=== PATIENT | male | born 1950 | race African-American/Black ===

== ENCOUNTER 2020-05-17 08:54 | Inpatient (IN) | payer MEDICARE, MEDICAID ==
[~2020-05-17] VITALS: Ht 170.2 cm; Wt 82.6 kg
[2020-05-17] MEDS ORDERED: SODIUM CHLORIDE 0.9% 1000ML BAG (SEPSIS BOLUS) IV ONE (09:15)
[2020-05-17 10:14] LABS: HEMATOCRIT. 49.9 % (42.0-52.0); HEMOGLOBIN. 16.2 g/dL (14.0-18.0); MEAN CORPUSCULAR HEMOGLOBIN 26.4 pg (28.0-32.0); MEAN CORPUSCULAR VOLUME 81.2 fL (80.0-94.0); PLATELET 219 x1000/uL (130-400); RED BLOOD CELL COUNT 6.14 mill/uL (4.7-6.1); RED CELL DISTRIBUTION WIDTH 13.1 % (11.6-14.6)
[2020-05-17 10:24] LABS: CHLORIDE 99 mEq/L (98-107); D-DIMER 1.58 mg/L FEU (<0.50); INR 1.1; PROTHROMBIN TIME 11.4 sec (9.6-11.0)
[2020-05-17 10:32] LABS: CREATINE KINASE 309 IU/L (39-308)
[2020-05-17 10:42] LABS: ATYPICAL LYMPHOCYTES 1
[2020-05-17 10:43] LABS: PLATELET ESTIMATE NORMAL
[2020-05-17] MEDS ORDERED: VANCOMYCIN 1 G PREMIX 200 ML IV ONE (11:15)
[2020-05-17] MEDS ORDERED: PIPERACILLIN/TAZ 3.375G PREMIX 50 ML IV ONE (11:15)
[2020-05-17] MEDS ORDERED: ONDANSETRON HCL 4MG/2ML INJ IV PRN (12:30)
[2020-05-17] MEDS ORDERED: ALBUTEROL 6.7GM HFA INHALER ORI PRN (12:30)
[2020-05-17] MEDS ORDERED: CLONIDINE 0.1MG TABLET PO PRN (12:30)
[2020-05-17] MEDS ORDERED: NITROGLYCERIN 0.4MG TABLET SL SL PRN (12:30)
[2020-05-17] MEDS ORDERED: KETOROLAC 15MG/ML VIAL IV PRN (12:30)
[2020-05-17] MEDS ORDERED: ACETAMINOPHEN 325MG TABLET PO PRN ×2 (12:30)
[2020-05-17] MEDS ORDERED: MAGNESIUM/ALUMINUM HYDROXIDE/SIMETHICONE 30ML UDC PO PRN (12:30)
[2020-05-17] MEDS ORDERED: GUAIFENESIN 200MG/10ML SUGAR FREE UDC PO PRN (12:30)
[2020-05-17] MEDS ORDERED: NA PHOS,M-B/NA PHOS,DI-BA ENEMA 118ML PR PRN (12:30)
[2020-05-17] MEDS ORDERED: DOCUSATE SODIUM 100MG CAPSULE PO PRN (12:30)
[2020-05-17] MEDS ORDERED: TRAMADOL 50MG TABLET PO PRN (12:30)
[2020-05-17] MEDS ORDERED: CEFTRIAXONE 1 G PREMIX 50 ML IV SCH (13:00)
[2020-05-17] MEDS ORDERED: AZITHROMYCIN 500 MG in DEXT 5% WATER 250 ML IV SCH (13:00)
[2020-05-17 13:32] LABS: FERRITIN 1285 ng/mL (22-322)
[2020-05-17 14:02] LABS: BG BASE EXCESS 1.4 mmol/L (-2.0-2.0); BG CARBOXYHEMOGLOBIN 0.3 % (0.5-1.5); BG DEOXYHEMOGLOBIN 12.6 % (0.0-5.0); BG FRACTION INSPIRED OXYGEN 32; BG HCO3 ACT 23.5 mmol/L (22.0-26.0); BG METHEMOGLOBIN 0.7 % (0.0-1.5); BG OXYGEN SATURATION 87.3 % (92.0-98.5); BG OXYHEMOGLOBIN 86.4 % (94.0-97.0); BG PCO2 31.1 mmHg (35.0-45.0); BG PH 7.497 (7.350-7.450); BG PO2 51.9 mmHg (75.0-100.0); BG SAMPLE SITE RIGHT RADIAL; BG TOTAL HEMOGLOBIN 16.3 g/dL (12.0-18.0); BG VENT MODE NASAL CANNULA
[2020-05-17 15:30] LABS: FOLIC ACID (FOLATE) SERUM >20 ng/mL ng/mL (>5.38)
[2020-05-17 15:41] LABS: VITAMIN B12 SERUM 1631 pg/mL (211-911)
[2020-05-17 15:52] LABS: CREATINE KINASE 248 IU/L (39-308); CREATINE KINASE MB FRACTION < 1.0 ng/mL (0.5-3.6)
[2020-05-17] MEDS: ENOXAPARIN 40MG/0.4ML SYR SUBCUT SCH (18:13)
[2020-05-17] MEDS: DEXAMETHASONE 10 MG/ML VIAL IV SCH (18:13)
[2020-05-17 19:47] LABS: CLARITY URINE CLOUDY (CLEAR); COLOR URINE DARK YELLOW (YELLOW); KETONES URINE TRACE (NEGATIVE); LEUKOCYTE ESTERASE URINE TRACE (NEGATIVE); NITRITE URINE POSITIVE (NEGATIVE); OCCULT BLOOD URINE NEGATIVE (NEGATIVE); PROTEIN URINE 2+ (NEGATIVE); SPECIFIC GRAVITY URINE 1.028 (1.005-1.030)
[2020-05-17 20:00] VITALS: BP 152/84
[2020-05-17 20:01] LABS: *AMPHETAMINES SCREEN URINE NEGATIVE (NEGATIVE); *BARBITURATES SCREEN URINE NEGATIVE (NEGATIVE); *BENZODIAZEPINES SCREEN URINE NEGATIVE (NEGATIVE); *COCAINE SCREEN URINE NEGATIVE (NEGATIVE)
[2020-05-17 20:02] LABS: CANNABINOID URINE SCREEN PRESUMTIVE POSITIVE (NEGATIVE); METHADONE URINE SCREEN NEGATIVE (NEGATIVE); OPIATES URINE SCREEN NEGATIVE (NEGATIVE); PHENCYCLIDINE URINE SCREEN NEGATIVE (NEGATIVE)
[2020-05-17] MEDS: FAMOTIDINE 20MG TABLET PO SCH (20:27)
[2020-05-17] MEDS: ASCORBIC ACID 500 MG TABLET PO SCH (20:27)
[2020-05-17] MEDS: GUAIFENESIN/DM 600MG/30MG ER TAB 12HR PO SCH (20:27)
[2020-05-17] MEDS: DILTIAZEM HCL 60MG TABLET PO SCH (20:27)
[2020-05-17] MEDS: ALBUTEROL 6.7GM HFA INHALER ORI SCH (20:29)
[2020-05-17] MEDS ORDERED: ZOLPIDEM TARTRATE 5MG TABLET PO PRN (21:00)
[2020-05-17 23:45] LABS: CREATINE KINASE 199 IU/L (39-308)
[2020-05-17 23:46] LABS: CREATINE KINASE MB FRACTION < 1.0 ng/mL (0.5-3.6)
[2020-05-18 00:05] VITALS: BP 117/79
[2020-05-18 04:00] VITALS: BP 133/70
[2020-05-18] MEDS: DILTIAZEM HCL 60MG TABLET PO SCH ×4 (05:56→18:16)
[2020-05-18] MEDS: ALBUTEROL 6.7GM HFA INHALER ORI SCH ×4 (05:56→21:25)
[2020-05-18 07:48] LABS: BASOPHILS % 0.3 % (0.0-2.0); HEMATOCRIT. 44.5 % (42.0-52.0); HEMOGLOBIN. 14.5 g/dL (14.0-18.0); LYMPHOCYTES % 8.3 % (20.0-50.0); MEAN CORPUSCULAR HEMOGLOBIN 26.5 pg (28.0-32.0); MEAN CORPUSCULAR VOLUME 81.2 fL (80.0-94.0); MEAN PLATELET VOLUME 8.9 fl (7.4-10.4); MONOCYTES % 4.5 % (2.0-8.0); NEUTROPHILS % 86.9 % (40.0-76.0); PLATELET 184 x1000/uL (130-400); RED BLOOD CELL COUNT 5.48 mill/uL (4.7-6.1); RED CELL DISTRIBUTION WIDTH 13.6 % (11.6-14.6)
[2020-05-18 08:00] VITALS: BP 126/77
[2020-05-18 08:04] LABS: CHLORIDE 107 mEq/L (98-107)
[2020-05-18 08:15] LABS: PHOSPHORUS 2.6 mg/dL (2.5-4.9)
[2020-05-18 08:16] LABS: HDL CHOLESTEROL 19 mg/dL (40-59); LDL CHOLESTEROL 69 mg/dL (5-100)
[2020-05-18] MEDS: ZINC SULFATE 220 MG ( 50 ) CAPSULE PO SCH (08:28)
[2020-05-18] MEDS: ASPIRIN 81MG EC TABLET PO SCH (08:28)
[2020-05-18] MEDS: ASCORBIC ACID 500 MG TABLET PO SCH ×2 (08:28→21:25)
[2020-05-18] MEDS: FAMOTIDINE 20MG TABLET PO SCH ×2 (08:29→21:25)
[2020-05-18] MEDS: GUAIFENESIN/DM 600MG/30MG ER TAB 12HR PO SCH ×2 (08:29→21:25)
[2020-05-18] MEDS: DEXAMETHASONE 10 MG/ML VIAL IV SCH (08:29)
[2020-05-18] MEDS ORDERED: DEXTROSE 50% WATER 50ML SYRINGE IV PRN (11:15)
[2020-05-18] MEDS: BLOOD SUGAR DIAGNOSTIC STRIP TEST SCH ×3 (11:40→21:00)
[2020-05-18 12:00] VITALS: BP 136/77
[2020-05-18] MEDS: CEFTRIAXONE 1,000 MG in DEXTROSE 5% WATER 50 ML IV SCH (13:51)
[2020-05-18] MEDS: ENOXAPARIN 40MG/0.4ML SYR SUBCUT SCH (13:53)
[2020-05-18] MEDS: INSULIN LISPRO 100 UNITS/ML SUBCUT SCH ×3 (13:53→21:00)
[2020-05-18 16:00] VITALS: BP 138/82
[2020-05-18] MEDS: AZITHROMYCIN 500MG in DEXTROSE 5% WATER 250ML IV SCH (18:15)
[2020-05-18 20:00] VITALS: BP 131/77
[2020-05-19 00:07] VITALS: BP 121/76
[2020-05-19] MEDS: DILTIAZEM HCL 60MG TABLET PO SCH ×4 (00:31→17:31)
[2020-05-19 04:00] VITALS: BP 126/74
[2020-05-19] MEDS: ALBUTEROL 6.7GM HFA INHALER ORI SCH ×4 (04:00→21:18)
[2020-05-19] MEDS: INSULIN LISPRO 100 UNITS/ML SUBCUT SCH ×4 (05:54→21:23)
[2020-05-19] MEDS: BLOOD SUGAR DIAGNOSTIC STRIP TEST SCH ×4 (05:54→21:12)
[2020-05-19 08:00] VITALS: BP 127/72
[2020-05-19] MEDS: GUAIFENESIN/DM 600MG/30MG ER TAB 12HR PO SCH ×2 (09:27→21:12)
[2020-05-19] MEDS: ZINC SULFATE 220 MG ( 50 ) CAPSULE PO SCH (09:27)
[2020-05-19] MEDS: FAMOTIDINE 20MG TABLET PO SCH ×2 (09:27→21:12)
[2020-05-19] MEDS: ASPIRIN 81MG EC TABLET PO SCH (09:27)
[2020-05-19] MEDS: ASCORBIC ACID 500 MG TABLET PO SCH ×2 (09:27→21:12)
[2020-05-19 12:00] VITALS: BP 125/60
[2020-05-19] MEDS: DEXAMETHASONE 10 MG/ML VIAL IV SCH (12:18)
[2020-05-19] MEDS: CEFTRIAXONE 1,000 MG in DEXTROSE 5% WATER 50 ML IV SCH (12:56)
[2020-05-19] MEDS: ENOXAPARIN 40MG/0.4ML SYR SUBCUT SCH (12:57)
[2020-05-19] MEDS: AZITHROMYCIN 500MG in DEXTROSE 5% WATER 250ML IV SCH (17:30)
[2020-05-19 20:00] VITALS: BP 111/78
[2020-05-20] VITALS: BP 138/84
[2020-05-20] MEDS: DILTIAZEM HCL 60MG TABLET PO SCH ×5 (00:42→23:44)
[2020-05-20] MEDS: ALBUTEROL 6.7GM HFA INHALER ORI SCH ×4 (03:36→21:17)
[2020-05-20 04:00] VITALS: BP 137/84
[2020-05-20] MEDS: BLOOD SUGAR DIAGNOSTIC STRIP TEST SCH ×4 (06:38→21:04)
[2020-05-20 08:00] VITALS: BP 123/77
[2020-05-20] MEDS: DEXAMETHASONE 10 MG/ML VIAL IV SCH (08:59)
[2020-05-20] MEDS: ASPIRIN 81MG EC TABLET PO SCH (08:59)
[2020-05-20] MEDS: ASCORBIC ACID 500 MG TABLET PO SCH ×2 (08:59→21:13)
[2020-05-20] MEDS: FAMOTIDINE 20MG TABLET PO SCH ×2 (09:00→21:13)
[2020-05-20] MEDS: ZINC SULFATE 220 MG ( 50 ) CAPSULE PO SCH (09:00)
[2020-05-20] MEDS: GUAIFENESIN/DM 600MG/30MG ER TAB 12HR PO SCH ×2 (09:00→21:13)
[2020-05-20] MEDS: INSULIN LISPRO 100 UNITS/ML SUBCUT SCH ×4 (09:02→21:13)
[2020-05-20 12:00] VITALS: BP 152/72
[2020-05-20] MEDS: ENOXAPARIN 40MG/0.4ML SYR SUBCUT SCH (13:44)
[2020-05-20] MEDS: CEFTRIAXONE 1,000 MG in DEXTROSE 5% WATER 50 ML IV SCH (13:44)
[2020-05-20] MEDS: AZITHROMYCIN 500MG in DEXTROSE 5% WATER 250ML IV SCH (18:41)
[2020-05-20 20:00] VITALS: BP 127/83
[2020-05-21] VITALS: BP 123/74
[2020-05-21] MEDS: ALBUTEROL 6.7GM HFA INHALER ORI SCH ×4 (03:53→21:41)
[2020-05-21 04:00] VITALS: BP 142/82
[2020-05-21] MEDS: DILTIAZEM HCL 60MG TABLET PO SCH ×4 (05:39→23:54)
[2020-05-21] MEDS: BLOOD SUGAR DIAGNOSTIC STRIP TEST SCH ×4 (06:20→21:40)
[2020-05-21 08:00] VITALS: BP 143/85
[2020-05-21] MEDS: FAMOTIDINE 20MG TABLET PO SCH ×2 (08:55→21:40)
[2020-05-21] MEDS: GUAIFENESIN/DM 600MG/30MG ER TAB 12HR PO SCH ×2 (08:55→21:40)
[2020-05-21] MEDS: ASCORBIC ACID 500 MG TABLET PO SCH ×2 (08:55→21:40)
[2020-05-21] MEDS: ZINC SULFATE 220 MG ( 50 ) CAPSULE PO SCH (08:55)
[2020-05-21] MEDS: DEXAMETHASONE 10 MG/ML VIAL IV SCH (08:55)
[2020-05-21] MEDS: ASPIRIN 81MG EC TABLET PO SCH (08:55)
[2020-05-21] MEDS: INSULIN LISPRO 100 UNITS/ML SUBCUT SCH ×4 (08:59→21:00)
[2020-05-21 12:00] VITALS: BP 132/85
[2020-05-21] MEDS: CEFTRIAXONE 1,000 MG in DEXTROSE 5% WATER 50 ML IV SCH (13:14)
[2020-05-21] MEDS: ENOXAPARIN 40MG/0.4ML SYR SUBCUT SCH (13:15)
[2020-05-21 15:54] VITALS: BP 138/84
[2020-05-21] MEDS: AZITHROMYCIN 500MG in DEXTROSE 5% WATER 250ML IV SCH (16:30)
[2020-05-21 20:00] VITALS: BP 146/85
[2020-05-22] VITALS: BP 145/90
[2020-05-22] MEDS: DILTIAZEM HCL 60MG TABLET PO SCH ×4 (05:31→23:45)
[2020-05-22] MEDS: ALBUTEROL 6.7GM HFA INHALER ORI SCH ×4 (05:33→21:15)
[2020-05-22] MEDS: BLOOD SUGAR DIAGNOSTIC STRIP TEST SCH ×4 (06:21→21:12)
[2020-05-22 08:00] VITALS: BP 141/84
[2020-05-22] MEDS: INSULIN LISPRO 100 UNITS/ML SUBCUT SCH ×4 (08:38→21:13)
[2020-05-22] MEDS: ZINC SULFATE 220 MG ( 50 ) CAPSULE PO SCH (08:39)
[2020-05-22] MEDS: ASCORBIC ACID 500 MG TABLET PO SCH ×2 (08:39→21:12)
[2020-05-22] MEDS: FAMOTIDINE 20MG TABLET PO SCH ×2 (08:39→21:12)
[2020-05-22] MEDS: GUAIFENESIN/DM 600MG/30MG ER TAB 12HR PO SCH ×2 (08:39→21:12)
[2020-05-22] MEDS: ASPIRIN 81MG EC TABLET PO SCH (08:39)
[2020-05-22] MEDS: DEXAMETHASONE 10 MG/ML VIAL IV SCH (08:39)
[2020-05-22] MEDS: ENOXAPARIN 40MG/0.4ML SYR SUBCUT SCH (11:43)
[2020-05-22 12:00] VITALS: BP 143/85
[2020-05-22 16:00] VITALS: BP 149/88
[2020-05-22 20:00] VITALS: BP 144/90
[2020-05-23] VITALS: BP 149/76
[2020-05-23] MEDS: ALBUTEROL 6.7GM HFA INHALER ORI SCH ×4 (03:07→22:33)
[2020-05-23 04:00] VITALS: BP 147/72
[2020-05-23] MEDS: DILTIAZEM HCL 60MG TABLET PO SCH ×3 (05:56→18:03)
[2020-05-23] MEDS: BLOOD SUGAR DIAGNOSTIC STRIP TEST SCH ×4 (06:40→21:00)
[2020-05-23] MEDS: INSULIN LISPRO 100 UNITS/ML SUBCUT SCH ×4 (07:10→21:00)
[2020-05-23 08:00] VITALS: BP 126/80
[2020-05-23] MEDS: GUAIFENESIN/DM 600MG/30MG ER TAB 12HR PO SCH ×2 (08:27→22:31)
[2020-05-23] MEDS: FAMOTIDINE 20MG TABLET PO SCH ×2 (08:27→22:31)
[2020-05-23] MEDS: ASCORBIC ACID 500 MG TABLET PO SCH ×2 (08:27→22:31)
[2020-05-23] MEDS: ZINC SULFATE 220 MG ( 50 ) CAPSULE PO SCH (08:27)
[2020-05-23] MEDS: ASPIRIN 81MG EC TABLET PO SCH (08:27)
[2020-05-23] MEDS: DEXAMETHASONE 10 MG/ML VIAL IV SCH (08:28)
[2020-05-23 12:00] VITALS: BP 152/76
[2020-05-23] MEDS: ENOXAPARIN 40MG/0.4ML SYR SUBCUT SCH (13:18)
[2020-05-23 16:00] VITALS: BP 153/96
[2020-05-23 20:00] VITALS: BP 145/89
[2020-05-24] VITALS: BP 156/98
[2020-05-24] MEDS: ALBUTEROL 6.7GM HFA INHALER ORI SCH ×4 (03:34→21:00)
[2020-05-24 04:00] VITALS: BP 149/96
[2020-05-24] MEDS: DILTIAZEM HCL 60MG TABLET PO SCH ×5 (06:09→23:00)
[2020-05-24] MEDS: INSULIN LISPRO 100 UNITS/ML SUBCUT SCH ×4 (07:10→23:26)
[2020-05-24] MEDS: BLOOD SUGAR DIAGNOSTIC STRIP TEST SCH ×4 (07:30→21:34)
[2020-05-24 08:00] VITALS: BP 158/101
[2020-05-24] MEDS: FAMOTIDINE 20MG TABLET PO SCH ×2 (08:05→21:34)
[2020-05-24] MEDS: ASCORBIC ACID 500 MG TABLET PO SCH ×2 (08:05→21:34)
[2020-05-24] MEDS: ZINC SULFATE 220 MG ( 50 ) CAPSULE PO SCH (08:05)
[2020-05-24] MEDS: GUAIFENESIN/DM 600MG/30MG ER TAB 12HR PO SCH ×2 (08:05→21:34)
[2020-05-24] MEDS: ASPIRIN 81MG EC TABLET PO SCH (08:05)
[2020-05-24] MEDS: DEXAMETHASONE 10 MG/ML VIAL IV SCH (08:05)
[2020-05-24 10:09] LABS: HEMOGLOBIN 14.1 g/dL (14.0-18.0); PLATELET 310 x1000/uL (130-400); RED BLOOD CELL COUNT 5.43 mill/uL (4.7-6.1); RED CELL DISTRIBUTION WIDTH 13.2 % (11.6-14.6)
[2020-05-24 10:18] LABS: CHLORIDE 113 mEq/L (98-107)
[2020-05-24] MEDS: ENOXAPARIN 40MG/0.4ML SYR SUBCUT SCH (12:19)
[2020-05-24 16:00] VITALS: BP 148/91
[2020-05-24 20:00] VITALS: BP 160/101
[2020-05-25] VITALS: BP 158/99
[2020-05-25] MEDS: ALBUTEROL 6.7GM HFA INHALER ORI SCH ×4 (03:00→20:30)
[2020-05-25 04:00] VITALS: BP 165/107
[2020-05-25] MEDS: DILTIAZEM HCL 60MG TABLET PO SCH ×3 (05:57→17:19)
[2020-05-25] MEDS: INSULIN LISPRO 100 UNITS/ML SUBCUT SCH ×4 (07:10→20:29)
[2020-05-25] MEDS: BLOOD SUGAR DIAGNOSTIC STRIP TEST SCH ×4 (07:30→20:30)
[2020-05-25 08:00] VITALS: BP 155/97
[2020-05-25] MEDS: ASCORBIC ACID 500 MG TABLET PO SCH ×2 (08:27→20:29)
[2020-05-25] MEDS: GUAIFENESIN/DM 600MG/30MG ER TAB 12HR PO SCH ×2 (08:27→20:29)
[2020-05-25] MEDS: ASPIRIN 81MG EC TABLET PO SCH (08:27)
[2020-05-25] MEDS: ZINC SULFATE 220 MG ( 50 ) CAPSULE PO SCH (08:27)
[2020-05-25] MEDS: FAMOTIDINE 20MG TABLET PO SCH ×2 (08:27→20:29)
[2020-05-25] MEDS: DEXAMETHASONE 10 MG/ML VIAL IV SCH (08:27)
[2020-05-25 12:00] VITALS: BP 152/87
[2020-05-25] MEDS: ENOXAPARIN 40MG/0.4ML SYR SUBCUT SCH (12:38)
[2020-05-25 16:00] VITALS: BP 139/96
[2020-05-26] MEDS: DILTIAZEM HCL 60MG TABLET PO SCH ×5 (01:10→23:54)
[2020-05-26] MEDS: ALBUTEROL 6.7GM HFA INHALER ORI SCH ×4 (03:00→22:25)
[2020-05-26] MEDS: BLOOD SUGAR DIAGNOSTIC STRIP TEST SCH ×4 (06:40→20:27)
[2020-05-26] MEDS: INSULIN LISPRO 100 UNITS/ML SUBCUT SCH ×4 (07:10→20:27)
[2020-05-26 08:00] VITALS: BP 148/91
[2020-05-26] MEDS: ASCORBIC ACID 500 MG TABLET PO SCH ×2 (09:00→20:27)
[2020-05-26] MEDS: FAMOTIDINE 20MG TABLET PO SCH ×2 (10:11→20:27)
[2020-05-26] MEDS: GUAIFENESIN/DM 600MG/30MG ER TAB 12HR PO SCH ×2 (10:11→20:27)
[2020-05-26] MEDS: DEXAMETHASONE 10 MG/ML VIAL IV SCH (10:11)
[2020-05-26] MEDS: ASPIRIN 81MG EC TABLET PO SCH (10:11)
[2020-05-26] MEDS: ZINC SULFATE 220 MG ( 50 ) CAPSULE PO SCH (10:11)
[2020-05-26 12:00] VITALS: BP 155/92
[2020-05-26] MEDS: ENOXAPARIN 40MG/0.4ML SYR SUBCUT SCH (14:33)
[2020-05-26 16:00] VITALS: BP 149/47
[2020-05-26 20:00] VITALS: BP 148/95
[2020-05-27] VITALS: BP 135/82
[2020-05-27] MEDS: ALBUTEROL 6.7GM HFA INHALER ORI SCH ×4 (03:40→21:31)
[2020-05-27 04:00] VITALS: BP 149/81
[2020-05-27] MEDS: BLOOD SUGAR DIAGNOSTIC STRIP TEST SCH ×4 (05:48→21:31)
[2020-05-27] MEDS: DILTIAZEM HCL 60MG TABLET PO SCH ×3 (05:48→17:17)
[2020-05-27] MEDS: INSULIN LISPRO 100 UNITS/ML SUBCUT SCH ×4 (05:48→21:31)
[2020-05-27 08:00] VITALS: BP_SYST 155; BP_SYST 181; BP_DIAS 115; BP_DIAS 91
[2020-05-27] MEDS: FAMOTIDINE 20MG TABLET PO SCH ×2 (08:07→21:30)
[2020-05-27] MEDS: ASPIRIN 81MG EC TABLET PO SCH (08:08)
[2020-05-27] MEDS: GUAIFENESIN/DM 600MG/30MG ER TAB 12HR PO SCH ×2 (08:08→21:30)
[2020-05-27] MEDS: ASCORBIC ACID 500 MG TABLET PO SCH ×2 (08:08→21:30)
[2020-05-27] MEDS: DEXAMETHASONE 10 MG/ML VIAL IV SCH (08:08)
[2020-05-27] MEDS: ZINC SULFATE 220 MG ( 50 ) CAPSULE PO SCH (08:08)
[2020-05-27 12:00] VITALS: BP 181/115
[2020-05-27] MEDS: ENOXAPARIN 40MG/0.4ML SYR SUBCUT SCH (12:14)
[2020-05-27 16:00] VITALS: BP 152/93
[2020-05-27 20:00] VITALS: BP 147/96
[2020-05-28] VITALS: BP 132/88
[2020-05-28] MEDS: DILTIAZEM HCL 60MG TABLET PO SCH ×5 (00:17→22:10)
[2020-05-28 04:00] VITALS: BP 111/93
[2020-05-28] MEDS: ALBUTEROL 6.7GM HFA INHALER ORI SCH ×4 (04:24→22:11)
[2020-05-28] MEDS: INSULIN LISPRO 100 UNITS/ML SUBCUT SCH ×4 (06:04→22:18)
[2020-05-28] MEDS: BLOOD SUGAR DIAGNOSTIC STRIP TEST SCH ×4 (06:04→21:00)
[2020-05-28 08:00] VITALS: BP 155/96
[2020-05-28] MEDS: ZINC SULFATE 220 MG ( 50 ) CAPSULE PO SCH (10:07)
[2020-05-28] MEDS: FAMOTIDINE 20MG TABLET PO SCH ×2 (10:07→20:48)
[2020-05-28] MEDS: ASPIRIN 81MG EC TABLET PO SCH (10:07)
[2020-05-28] MEDS: GUAIFENESIN/DM 600MG/30MG ER TAB 12HR PO SCH ×2 (10:07→20:48)
[2020-05-28] MEDS: ASCORBIC ACID 500 MG TABLET PO SCH ×2 (10:08→20:48)
[2020-05-28] MEDS: DEXAMETHASONE 10 MG/ML VIAL IV SCH (10:08)
[2020-05-28] MEDS: ENOXAPARIN 40MG/0.4ML SYR SUBCUT SCH (12:16)
[2020-05-28 12:44] VITALS: BP 153/96
[2020-05-28 17:14] VITALS: BP 150/90
[2020-05-28 20:00] VITALS: BP 138/97
[2020-05-29] VITALS: BP 135/90
[2020-05-29] MEDS: DILTIAZEM HCL 60MG TABLET PO SCH ×3 (06:20→17:02)
[2020-05-29] MEDS: BLOOD SUGAR DIAGNOSTIC STRIP TEST SCH ×4 (06:20→21:15)
[2020-05-29] MEDS: ALBUTEROL 6.7GM HFA INHALER ORI SCH ×4 (06:20→21:21)
[2020-05-29 08:00] VITALS: BP 139/91
[2020-05-29] MEDS: INSULIN LISPRO 100 UNITS/ML SUBCUT SCH ×4 (08:38→21:17)
[2020-05-29] MEDS: ASPIRIN 81MG EC TABLET PO SCH (08:39)
[2020-05-29] MEDS: ASCORBIC ACID 500 MG TABLET PO SCH ×2 (08:39→21:14)
[2020-05-29] MEDS: FAMOTIDINE 20MG TABLET PO SCH ×2 (08:39→21:15)
[2020-05-29] MEDS: GUAIFENESIN/DM 600MG/30MG ER TAB 12HR PO SCH ×2 (08:39→21:14)
[2020-05-29] MEDS: DEXAMETHASONE 10 MG/ML VIAL IV SCH (08:39)
[2020-05-29 12:00] VITALS: BP 142/92
[2020-05-29] MEDS: ENOXAPARIN 40MG/0.4ML SYR SUBCUT SCH (12:02)
[2020-05-29] MEDS: ZINC SULFATE 220 MG ( 50 ) CAPSULE PO SCH (12:02)
[2020-05-29 13:10] VITALS: BP 142/92
[2020-05-29 16:00] VITALS: BP 138/78
[2020-05-29 20:00] VITALS: BP 134/69
[2020-05-30] VITALS: BP 155/95
[2020-05-30] MEDS: ALBUTEROL 6.7GM HFA INHALER ORI SCH ×4 (02:23→21:20)
[2020-05-30 04:00] VITALS: BP 153/96
[2020-05-30] MEDS: DILTIAZEM HCL 60MG TABLET PO SCH ×4 (05:22→17:37)
[2020-05-30] MEDS: BLOOD SUGAR DIAGNOSTIC STRIP TEST SCH ×4 (06:29→20:55)
[2020-05-30] MEDS: INSULIN LISPRO 100 UNITS/ML SUBCUT SCH ×4 (07:10→21:12)
[2020-05-30 08:00] VITALS: BP 133/76
[2020-05-30] MEDS: DEXAMETHASONE 10 MG/ML VIAL IV SCH (09:04)
[2020-05-30] MEDS: ZINC SULFATE 220 MG ( 50 ) CAPSULE PO SCH (09:19)
[2020-05-30] MEDS: ASPIRIN 81MG EC TABLET PO SCH (09:19)
[2020-05-30] MEDS: ASCORBIC ACID 500 MG TABLET PO SCH ×2 (09:19→21:11)
[2020-05-30] MEDS: GUAIFENESIN/DM 600MG/30MG ER TAB 12HR PO SCH ×2 (09:19→21:11)
[2020-05-30] MEDS: FAMOTIDINE 20MG TABLET PO SCH ×2 (09:19→21:11)
[2020-05-30 12:00] VITALS: BP 145/86
[2020-05-30] MEDS: ENOXAPARIN 40MG/0.4ML SYR SUBCUT SCH (13:15)
[2020-05-30 16:00] VITALS: BP 147/91
[2020-05-30 20:00] VITALS: BP 136/89
[2020-05-31] VITALS: BP 148/73
[2020-05-31] MEDS: DILTIAZEM HCL 60MG TABLET PO SCH ×3 (00:32→13:07)
[2020-05-31] MEDS: ALBUTEROL 6.7GM HFA INHALER ORI SCH ×2 (03:17→08:56)
[2020-05-31 04:00] VITALS: BP 138/75
[2020-05-31] MEDS: BLOOD SUGAR DIAGNOSTIC STRIP TEST SCH ×2 (06:16→11:40)
[2020-05-31] MEDS: INSULIN LISPRO 100 UNITS/ML SUBCUT SCH ×2 (07:10→13:09)
[2020-05-31 08:00] VITALS: BP 137/76
[2020-05-31] MEDS: ASPIRIN 81MG EC TABLET PO SCH (08:54)
[2020-05-31] MEDS: GUAIFENESIN/DM 600MG/30MG ER TAB 12HR PO SCH (08:54)
[2020-05-31] MEDS: ZINC SULFATE 220 MG ( 50 ) CAPSULE PO SCH (08:54)
[2020-05-31] MEDS: FAMOTIDINE 20MG TABLET PO SCH (08:54)
[2020-05-31] MEDS: DEXAMETHASONE 10 MG/ML VIAL IV SCH (09:00)
[2020-05-31 12:00] VITALS: BP 131/81
[2020-05-31] MEDS: ENOXAPARIN 40MG/0.4ML SYR SUBCUT SCH (13:00)
[2020-05-31] MEDS: ASCORBIC ACID 500 MG TABLET PO SCH (13:07)
== END 2020-05-31 16:25 | disposition home health service (06) | DRG 720 ==
LOC: ER 08:54 → 7EST 12:00 → EDBEDREQSVC 12:10 → EDBEDREQ 12:10 → SUPCPDRO 12:35 → ENRESERV 18:09
PROVIDERS: ADMIT Internal Medicine; ATTEND Internal Medicine
DX: A41.89 Other specified sepsis (principal); U07.1 COVID-19; J96.01 Acute respiratory failure with hypoxia; E44.1 Mild protein-calorie malnutrition; M62.82 Rhabdomyolysis; J12.82 Pneumonia due to coronavirus disease 2019; R65.20 Severe sepsis without septic shock; Z68.28 Body mass index [BMI] 28.0-28.9, adult; E11.65 Type 2 diabetes mellitus with hyperglycemia
CPT/HCPCS: 36415; 36600; 71045; 80048; 80053; 80061; 80305; 80320; 81003; 82375; 82550; 82553; 82607; 82728; 82746; 82805; 82962; 83036; 83605; 83615; 83735; 84100; 84145; 84484; 85025; 85027; 85379; 85384; 86140; 93970; 99291; C1893; C9803; J0456; J0696; J1100; J1650; J1815; J2543; J3370; J7030; J7060; U0003; G0480